=== PATIENT | female | born 1970 | race Caucasian/White ===

== ENCOUNTER 2018-10-20 18:54 | Emergency (ER) | payer MEDICAID, SELFPAY ==
[2018-10-20 18:57] VITALS: BP 135/84; PULSE 112; RESP 18; TEMP 37.2; O2SAT 96
--- NOTE | 2018-10-20 19:05 | W.ED.GENAD ---
Discharge Plan Disposition Patient Disposition: HOME Condition: Stable Discharge Details Chief Complaint: RespSymp Clinical Impression: COPD exacerbation Primary Care Provider: Keyona Lamar ED Provider: Javi Lowery Home Meds and New Rx's Prescriptions: New prednisone 20 mg tablet 60 mg PO DAILY 4 Days Qty: 12 RF: 0 levofloxacin 750 mg tablet 750 mg PO DAILY 4 Days Qty: 4 RF: 0 benzonatate [Tessalon Perles] 100 mg capsule 100 mg PO BID-TID PRN (Reason: cough) Qty: 30 RF: 0 Discharge Instructions Instructions: COPD (Chronic Obstructive Pulmonary Disease) (ED) Additional Instructions: use the inhaler, 2 puffs every 2 hours, with the spacer follow up with your primary care provider especially if symptoms continue within a week if you feel you are becoming more ill or more short of breath return to the emergency department for reevaluation Medical Decision Making 48 yo female with hx of copd, smoker, former opiate user and stopped using months ago and stopped taking her meds at the same time comes in with cough and shortness of breath since Friday. Denies any recent travel or fevers. She is speaking in full sentences on exam with wheezing in all lungs bilaterally. Denies any pleuritic pain, has no evidence of dvt on exam and no significant hypoxia and exam is consistent with copd so doubt pe at this time. No fever and appears well so doubt pna and do not feel imaging indicated. Will give neb and prednisone and reassess. pt remains stable and does feel improved with nebs, has mild apical wheezing now. Feel she is stable for d/c and is hd stable, and will d/c with inhaler, and prescription for steroids and given increased cough abx. Advised f/u with pcp and return precautions given Differential Diagnosis copd, pna, rad HPI General Mode of arrival: ambulatory. Date/Time Provider Initiated Documentation: 10/20/18 19:02. Limitations to Documentation: no limitations. Information obtained by: patient. History of Present Illness 48 year old F presents to the emergency department with the chief complaint of cough, described as moderate, Patient started experiencing this day(s) (3) and it has been constant. No relieving factors improve symptom(s), No exacerbating factors reported . Patient did receive the following treatments prior to arrival, none Related Data Home Medications Medication Instructions Recorded Confirmed benzonatate [Tessalon Perles] 100 mg PO BID-TID PRN #30 cap 10/20/18 levofloxacin 750 mg PO DAILY 4 Days #4 tab 10/20/18 prednisone 60 mg PO DAILY 4 Days #12 tab 10/20/18 Previous Rx's Medication Instructions Recorded benzonatate [Tessalon Perles] 100 mg PO BID-TID PRN #30 cap 10/20/18 levofloxacin 750 mg PO DAILY 4 Days #4 tab 10/20/18 prednisone 60 mg PO DAILY 4 Days #12 tab 10/20/18 Allergies Allergy/AdvReac Type Severity Reaction Status Date / Time No Known Allergies Allergy Unverified 10/20/18 19:03 General Stated Complaint: RespSymp SHARON: 3 Review of Systems Review of Systems All systems reviewed & are unremarkable except as noted in HPI and below Constitutional Denies chills and Denies fever(s) Cardiovascular Denies chest pain Gastrointestinal Denies abdominal pain, Denies nausea and Denies vomiting PFSH Surgical History Cholecystectomy Social History Smoking/Tobacco Use Status: Current every day Tobacco Type: cigarettes Drug use: Never Do you feel safe at home: Yes Do you feel safe in your relationship?: Yes Exam Const General: no acute distress Orientation: alert HENCO Head: normal to inspection Ears: external ears normal General nose exam: external nose normal Mouth: moist mucous membranes Eyes General: appearance normal, both eyes and all related structures Neck Neck: normal visual inspection Resp Effort & Inspection: able to speak in complete sentences and no use of accessory muscles Cardio Rate: regular rate Skin General skin exam: no rashes or lesions noted Neuro General: alert and oriented x3 Extrem General: normal to inspection Psych Mental Status: mental status grossly normal Course Vital Signs Temperature 37.2 C 10/20/18 18:57 Pulse 112 H 10/20/18 18:57 Respiratory Rate 18 10/20/18 18:57 Blood Pressure 135/84 10/20/18 18:57 Pulse Oximetry 96 10/20/18 18:57 Temperature 37.2 C 10/20/18 18:57 Temperature Source Skin 10/20/18 18:57 Pulse 112 H 10/20/18 18:57 Respiratory Rate 18 10/20/18 18:57 Respiratory Effort 10/20/18 19:01 Blood Pressure 135/84 10/20/18 18:57 Pulse Oximetry 96 10/20/18 18:57 Oxygen Delivery Method Room Air 10/20/18 18:57 Oxygen Flow Rate 0 10/20/18 18:57
--- NOTE | 2018-10-20 19:08 | ED.GENADUL_ITS ---
Discharge Plan Disposition Patient Disposition: HOME Condition: Stable Discharge Details Chief Complaint: RespSymp Clinical Impression: COPD exacerbation Primary Care Provider: Keyona Lamar ED Provider: Javi Lowery Home Meds and New Rx's Prescriptions: New prednisone 20 mg tablet 60 mg PO DAILY 4 Days Qty: 12 RF: 0 levofloxacin 750 mg tablet 750 mg PO DAILY 4 Days Qty: 4 RF: 0 benzonatate [Tessalon Perles] 100 mg capsule 100 mg PO BID-TID PRN (Reason: cough) Qty: 30 RF: 0 Discharge Instructions Instructions: COPD (Chronic Obstructive Pulmonary Disease) (ED) Additional Instructions: use the inhaler, 2 puffs every 2 hours, with the spacer follow up with your primary care provider especially if symptoms continue within a week if you feel you are becoming more ill or more short of breath return to the emergency department for reevaluation Medical Decision Making 48 yo female with hx of copd, smoker, former opiate user and stopped using months ago and stopped taking her meds at the same time comes in with cough and shortness of breath since Friday. Denies any recent travel or fevers. She is speaking in full sentences on exam with wheezing in all lungs bilaterally. Denies any pleuritic pain, has no evidence of dvt on exam and no significant hypoxia and exam is consistent with copd so doubt pe at this time. No fever and appears well so doubt pna and do not feel imaging indicated. Will give neb and prednisone and reassess. pt remains stable and does feel improved with nebs, has mild apical wheezing now. Feel she is stable for d/c and is hd stable, and will d/c with inhaler, and prescription for steroids and given increased cough abx. Advised f/u with pcp and return precautions given Differential Diagnosis copd, pna, rad HPI General Mode of arrival: ambulatory . Date/Time Provider Initiated Documentation: 10/20/18 19:02 . Limitations to Documentation: no limitations . Information obtained by: patient . History of Present Illness 48 year old F presents to the emergency department with the chief complaint of cough, described as moderate, Patient started experiencing this day(s) (3) and it has been constant. No relieving factors improve symptom(s), No exacerbating factors reported . Patient did receive the following treatments prior to arrival, none Related Data Home Medications Medication Instructions Recorded Confirmed benzonatate [Tessalon Perles] 100 mg PO BID-TID PRN #30 cap 10/20/18 levofloxacin 750 mg PO DAILY 4 Days #4 tab 10/20/18 prednisone 60 mg PO DAILY 4 Days #12 tab 10/20/18 Previous Rx's Medication Instructions Recorded benzonatate [Tessalon Perles] 100 mg PO BID-TID PRN #30 cap 10/20/18 levofloxacin 750 mg PO DAILY 4 Days #4 tab 10/20/18 prednisone 60 mg PO DAILY 4 Days #12 tab 10/20/18 Allergies Allergy/AdvReac Type Severity Reaction Status Date / Time No Known Allergies Allergy Unverified 10/20/18 19:03 General Stated Complaint: RespSymp SHARON: 3 Review of Systems Review of Systems All systems reviewed & are unremarkable except as noted in HPI and below Constitutional Denies chills and Denies fever(s) Cardiovascular Denies chest pain Gastrointestinal Denies abdominal pain, Denies nausea and Denies vomiting PFSH Surgical History Cholecystectomy Social History Smoking/Tobacco Use Status: Current every day Tobacco Type: cigarettes Drug use: Never Do you feel safe at home: Yes Do you feel safe in your relationship?: Yes Exam Const General: no acute distress Orientation: alert HENPR Head: normal to inspection Ears: external ears normal General nose exam: external nose normal Mouth: moist mucous membranes Eyes General: appearance normal, both eyes and all related structures Neck Neck: normal visual inspection Resp Effort & Inspection: able to speak in complete sentences and no use of accessory muscles Cardio Rate: regular rate Skin General skin exam: no rashes or lesions noted Neuro General: alert and oriented x3 Extrem General: normal to inspection Psych Mental Status: mental status grossly normal Course Vital Signs Temperature 37.2 C 10/20/18 18:57 Pulse 112 H 10/20/18 18:57 Respiratory Rate 18 10/20/18 18:57 Blood Pressure 135/84 10/20/18 18:57 Pulse Oximetry 96 10/20/18 18:57 Temperature 37.2 C 10/20/18 18:57 Temperature Source Skin 10/20/18 18:57 Pulse 112 H 10/20/18 18:57 Respiratory Rate 18 10/20/18 18:57 Respiratory Effort 10/20/18 19:01 Blood Pressure 135/84 10/20/18 18:57 Pulse Oximetry 96 10/20/18 18:57 Oxygen Delivery Method Room Air 10/20/18 18:57 Oxygen Flow Rate 0 10/20/18 18:57
[2018-10-20] MEDS: predniSONE 20 MG TAB (19:09)
[2018-10-20] MEDS: Albuterol/Ipratropium 3 ML UPD VIAL (19:09)
[2018-10-20] MEDS: levoFLOXacin 500 MG, levoFLOXacin 250 MG 750 MG PO (19:31)
[2018-10-20] MEDS: Albuterol 2.5 MG/3 ML INH SOLN VIAL UPD (19:32)
[2018-10-20 20:04] VITALS: BP 140/76; PULSE 130; RESP 22; TEMP 37.8; O2SAT 96
[2018-10-20] MEDS: Inhaler, Assist Device 1 EACH MC (20:10)
[2018-10-20] MEDS: Benzonatate 100 MG CAP (20:10)
[2018-10-20] MEDS: Albuterol HFA 8 GM 60 PUFF INH IH (20:10)
== END 2018-10-20 20:15 | disposition home or self-care (01) ==
PROVIDERS: Emergency Provider Emergency Medicine; PCP Nurse Practitioner Family
DX: J44.1 Chronic obstructive pulmonary disease with (acute) exacerbation (principal); F17.210 Nicotine dependence, cigarettes, uncomplicated
CPT/HCPCS: 94640; 99284; J7512; J7613; J7620

== ENCOUNTER 2021-10-12 13:19 | Emergency (ER) | payer MEDICAID, SELFPAY ==
[2021-10-12 13:24] VITALS: BP 133/83; PULSE 100; RESP 16; TEMP 36.6; O2SAT 96
--- NOTE | 2021-10-12 13:30 | DI.RAD_ITS ---
Exam(s) XR FOREARM RT XR HUMERUS RT XR WRIST RT COMPLETE EXAM: XR HUMERUS RT and XR forearm RT and XR wrist RT complete CLINICAL HISTORY: fall, arm pain. TECHNIQUE: 2D digital imaging was performed of the right humerus. Seven images were obtained. AP, lateral and oblique views were obtained. COMPARISON: No priors for comparison. FINDINGS: BONES: On the x-ray of the forearm, there is a vertical lucency passing through the radial head suspi cious for nondisplaced fracture. No bony destructive lesion is seen. No other fracture is identified . No dislocation is seen. SOFT TISSUE: Normal. IMPRESSION: Question of a nondisplaced fracture involving the radial head. DATA REPOSITORY: RADIATION DOSE DELIVERED:
[2021-10-12] MEDS: Acetaminophen 325 MG TAB 650 MG PO (13:43)
[2021-10-12] MEDS: Ibuprofen 600 MG TAB PO (13:43)
--- NOTE | 2021-10-12 13:45 | ED.GENADUL_ITS ---
Discharge Plan Disposition Patient Disposition: HOME Condition: Improving Discharge Details Chief Complaint: Orthopedic Clinical Impression: Radial head fracture Primary Care Provider: Keyona Lamar ED Provider: Alexey Antoine Discharge Instructions Instructions: Arm Fracture in Adults (ED), Elbow Fracture (ED) Additional Instructions: Please follow-up with client engagement specialist next week for repeat evaluation. Begin light range of motion after 3 to 4 days and the sling, continue with ibuprofen acetaminophen ice elevation. Return the emergency department for any worsening symptomatology. Medical Decision Making 51-year-old female presents with mechanical fall from standing slip on ice, fell onto her right side, decreased range of motion to shoulder and elbow of right upper extremity, median radial ulnar distribution sensory intact, flexion extension of fingers intact, soft compartments radial pulse intact, no palpable deformity however given decreased range of motion high, suspicion for fracture consider humeral fracture versus radial ulnar fracture, patient did have some tenderness at wrist consider scaphoid injury versus carpal dislocation versus contusion versus sprain. Analgesia anti-inflammatory, x-ray, patient does not want stronger opioid medications as she does have a history of substance abuse. 15: 05 clinical and radiographical concern for radial head fracture. Patient placed in sling immobilization. Did have some ulnar wrist discomfort placed in universal wrist splint. Patient be given orthopedic follow-up. Encourage ice elevation ibuprofen Tylenol use. Home care instructions and return precautions given HPI General Date/Time Provider Initiated Documentation: 10/12/21 13:19 . HPI Narrative: 51-year-old female presented mechanical fall from standing on her right side, fell onto her right arm, no head injury no loss conscious no chest or abdominal injury. Endorses pain to right forearm and right upper arm. Related Data Allergies Allergy/AdvReac Type Severity Reaction Status Date / Time No Known Allergies Allergy Unverified 10/12/21 13:28 General Stated Complaint: Orthopedic SHARON: 4 Review of Systems Narrative: Review of Systems Constitutional: negative Eyes: negative ENT: negative Cardiovascular: negative Respiratory: negative Gastrointestinal: negative : negative Musculoskeletal: Arm pain Skin: negative Neurologic: negative Psych: negative PFSH All Active Problems (Updated 10/12/21 @ 15:08 by Alexey Antoine MD) Radial head fracture (Acute) Surgical History Cholecystectomy Social History Smoking/Tobacco Use Status: Current every day Tobacco Type: cigarettes Smoking risk assessment performed?: Yes Drug use: Never Do you feel safe at home: Yes Do you feel safe in your relationship?: Yes Exam Narrative Exam Narrative: Physical Examination General: alert, awake, cooperative, resting comfortably, no acute distress HEENT: normocephalic, atraumatic; PERRL, EOM intact, conjunctiva normal; no nasal discharge; moist mucous membranes, oral and pharyngeal mucosa normal, tolerating secretions Neck: supple, trachea midline; full ROM Chest: normal to inspection Respiratory: normal respiratory effort, speaking in full sentences, clear to auscultation, no wheezing, rales or rhonchi Cardiac: regular rate, regular rhythm, S1S2 intact, no murmurs rubs or gallops GI: abdomen soft, non-tender, non-distended; no palpable mass or hepatosplenomegaly Skin: no lesions, rashes or trauma appreciated Neuro: AAOx3, normal speech, moving all extremities Extremities: Right upper extremity decreased range of motion at shoulder and elbow due to discomfort, able to flex and extend fingers, median radial and ulnar nerve distribution intact, radial pulse intact, no palpable deformity, soft compartments Psych: Appropriate mood and affect Course Vital Signs Vital signs: Vital Signs Temperature 36.6 C 10/12/21 13:24 Pulse 100 H 10/12/21 13:24 Respiratory Rate 16 10/12/21 13:24 Blood Pressure 133/83 10/12/21 13:24 Pulse Oximetry 96 10/12/21 13:24 Temperature 36.6 C 10/12/21 13:24 Temperature Source Oral 10/12/21 13:24 Pulse 100 H 10/12/21 13:24 Respiratory Rate 16 10/12/21 13:24 Respiratory Effort 10/12/21 13:32 Blood Pressure 133/83 10/12/21 13:24 Blood Pressure Position Sitting 10/12/21 13:24 Pulse Oximetry 96 10/12/21 13:24 Oxygen Delivery Method Room Air 10/12/21 13:24 Oxygen Flow Rate 0 10/12/21 13:24 Pain Level 7 10/12/21 13:24 Comment 10/12/21 13:24
== END 2021-10-12 15:47 | disposition home or self-care (01) ==
PROVIDERS: Emergency Provider Emergency Medicine; PCP Nurse Practitioner Family
DX: S52.124A Nondisplaced fracture of head of right radius, initial encounter for closed fracture (principal); W00.0XXA Fall on same level due to ice and snow, initial encounter
CPT/HCPCS: 81025; 99284; 73060; 73090; 73110

== ENCOUNTER 2021-10-30 10:40 | Outpatient (CLI) | payer MEDICAID, SELFPAY ==
--- NOTE | 2021-10-30 08:00 | DI.RAD_ITS ---
Exam(s) XR ELBOW RT LIMITED EXAM: XR ELBOW RT LIMITED CLINICAL HISTORY: right radial head fracture. TECHNIQUE: 2D digital imaging was performed. COMPARISON: CR XR FOREARM RT from 10/12/2021 FINDINGS: 3 views There is no evidence of acute fracture nor joint effusion and there is no swelling of the olecranon b ursa. Radial head appears unremarkable. No loose intra-articular body. Additional Coy's radial head view was performed today and does not reveal evidence of a radial head -neck fracture. IMPRESSION: No fracture evident. DATA REPOSITORY: RADIATION DOSE DELIVERED:
--- NOTE | 2021-10-30 08:15 | DI.RAD_ITS ---
Exam(s) XR SHOULDER RT COMPLETE 2+V EXAM: XR SHOULDER RT COMPLETE 2+V CLINICAL HISTORY: right arm injury. TECHNIQUE: 2D digital imaging was performed. COMPARISON: No exams were available for comparison FINDINGS: Two views No evidence of fracture or dislocation nor calcifications within the subacromial space (which does no t appear diminished). No obvious degenerative changes in the glenohumeral and AC joints. However, t here is a small 1 millimeter osteophytic density immediately subjacent to the inferior aspect of the osseous glenoid. This may be related to the labrum or possibly a mild Bankart-type finding if there has been prior dislocation. Other possibility is a small loose body at this level. IMPRESSION: DATA REPOSITORY: RADIATION DOSE DELIVERED:
== END 2021-10-30 10:41 | disposition home or self-care (01) ==
LOC: DIORS 10:41
PROVIDERS: PCP Nurse Practitioner Family; Referring Provider Nurse Practitioner Family; Visit Provider Physician Assistant
DX: S49.81XA Other specified injuries of right shoulder and upper arm, initial encounter; M25.711 Osteophyte, right shoulder; S52.124A Nondisplaced fracture of head of right radius, initial encounter for closed fracture; W00.0XXA Fall on same level due to ice and snow, initial encounter
CPT/HCPCS: 73030; 73070

== ENCOUNTER 2022-02-26 16:57 | Outpatient (CLI) | payer MEDICAID, SELFPAY ==
--- NOTE | 2022-02-26 16:45 | RT.EKG_ITS ---
APPROVED REPORT Exam: Resting ECG Reason for Exam: chest discomfort Patient Location: O HR:109 bpm ECG Measurements Heart Rate 109 AXIS PA 123 P 60 QRSd 104 QRS 40 QT 340 T 41 QTc 458 Conclusion Sinus tachycardia...rate> 99
== END 2022-02-26 16:58 | disposition home or self-care (01) ==
LOC: DI.CM 16:57
PROVIDERS: PCP Nurse Practitioner Family; Visit Provider Nurse Practitioner Family
DX: R07.89 Other chest pain (principal); R94.31 Abnormal electrocardiogram [ECG] [EKG]; R00.0 Tachycardia, unspecified
CPT/HCPCS: 93010

== ENCOUNTER 2022-02-26 17:16 | Outpatient (REF) | payer MEDICAID, SELFPAY ==
[2022-02-26 21:05] LABS: Anion Gap 10.1 mmol/L (3-11); BUN 10 mg/dL (7-18); CO2 27.9 mmol/L (21.0-32.0); CREATININE 1.1 mg/dL (0.55-1.02); Calcium 8.9 mg/dL (8.5-10.1); Chloride 102 mmol/L (98-107); Estimated GFR 52.79 (mL/min/1.73m2); Glucose 85 mg/dL (74-106); Potassium 4.5 mmol/L (3.5-5.1); Sodium 140 mmol/L (136-145)
== END 2022-02-26 17:17 | disposition home or self-care (01) ==
LOC: LBN 17:16
PROVIDERS: PCP Nurse Practitioner Family; Visit Provider Nurse Practitioner Family
DX: U07.1 COVID-19 (principal)
CPT/HCPCS: 80048

== ENCOUNTER 2022-03-11 17:21 | Outpatient (REF) | payer MEDICAID, SELFPAY ==
[2022-03-11 16:28] LABS: Abs Immature Grans 0.09 10^3/uL (0.0-0.06); Absolute Basophil Count 0.06 10^3/uL (0.0-0.2); Absolute Eosinophil Count 0.11 10^3/uL (0.0-0.7); Absolute Lymphocyte Count 3.04 10^3/uL (1.2-3.4); Absolute Monocyte Count 0.84 10^3/uL (0.1-0.8); Absolute Neutrophil Count 6.25 10^3/uL (1.2-6.7); Basophils % 0.6; Eosinophils % 1.1; HGB 15.6 g/dL (11.2-15.7); Immature Grans % 0.9; Lymphocytes % 29.3; MCH 29.7 pg (27.0-33.0); MCHC 33.2 % (32.0-36.0); MCV 90 fL (80-95); MPV 10.5 fL (8.0-11.0); Monocytes % 8.1; Platelet Count 418 10^3/uL (130-400); RBC 5.25 10^6/uL (3.93-5.22); RDW 13.1 % (11.7-14.6); RDW-SD 42.9 fL; WBC 10.39 10^3/uL (4.4-10.8)
[2022-03-11 16:53] LABS: FREE T4 1.12 ng/dL (0.76-1.46); TSH 1.43 uIU/mL (0.36-3.74)
[2022-03-12 18:09] LABS: T3, Total 137 ng/dL (97-169)
== END 2022-03-11 17:22 | disposition home or self-care (01) ==
LOC: NCHCN 17:21
PROVIDERS: PCP Nurse Practitioner Family; Visit Provider Nurse Practitioner Family
DX: E05.90 Thyrotoxicosis, unspecified without thyrotoxic crisis or storm (principal); R00.0 Tachycardia, unspecified
CPT/HCPCS: 84439; 84443; 84480; 85025

== ENCOUNTER 2022-03-25 17:11 | Outpatient (REF) | payer MEDICAID, SELFPAY ==
--- NOTE | 2022-03-25 10:35 | PAPFT_PTH ---
PATIENT: Patricia Quiroz LOC: [facility] U#:[id number] AGE/SX: 51/F ROOM: RE03/25/[address]: RICA RAMSAY : 1970 BED: DIS: 03/25/2022 SPEC #: [id number] RECD: 03/25/22 17:51 STATUS: EVETTE REQ #: [id number] MALCOLM: 03/25/22 10:[address]: Rica Ramsay DEPT: [facility] Cytology RECD BY: Alma Rosa Montague ENTERED: 03/25/22 17:51 SP TYPE: PAPFT OTHR DR: Unknown,Unknown Tissues: 1 - CX/ENDOCX FOR PAP SMEARS Procedures: PAP THIN PREP/[facility] Screening HPV DNA PROBE Comments: [id number] (CHLAMYDIA/GC)
[2022-03-25 21:03] LABS: ALT 35 U/L (14-59); AST 24 U/L (15-37); Albumin 3.8 g/dL (3.4-5.0); Alkaline Phosphatase 80 U/L (46-116); Anion Gap 8.5 mmol/L (3-11); BUN 12 mg/dL (7-18); Bilirubin, Total 0.2 mg/dL (0.2-1.0); CO2 28.5 mmol/L (21.0-32.0); CREATININE 1.1 mg/dL (0.55-1.02); Calcium 9.2 mg/dL (8.5-10.1); Chloride 100 mmol/L (98-107); Glucose 91 mg/dL (74-106); Potassium 4.3 mmol/L (3.5-5.1); Sodium 137 mmol/L (136-145); Total Protein 8.6 g/dL (6.4-8.2)
[2022-03-25 21:21] LABS: Calculated LDL 163 mg/dL (<100); Cholesterol 227 mg/dL (<200); HDL Cholesterol 49 mg/dL (40-60); Triglyceride 78 mg/dL (<150)
[2022-03-26 13:46] LABS: Chlamydia Result Negative (Negative); GC Result Negative (Negative)
== END 2022-03-25 17:12 | disposition home or self-care (01) ==
LOC: NCHCN 17:11
PROVIDERS: Visit Provider Nurse Practitioner Family
DX: R00.0 Tachycardia, unspecified (principal); Z13.220 Encounter for screening for lipoid disorders; Z12.4 Encounter for screening for malignant neoplasm of cervix; Z11.3 Encounter for screening for infections with a predominantly sexual mode of transmission; Z11.51 Encounter for screening for human papillomavirus (HPV)
CPT/HCPCS: 80053; 80061; 87491; 87591; 88142; 87624

== ENCOUNTER → 2022-04-09 01:55 | Outpatient (CLI) | payer MEDICAID, SELFPAY ==
--- NOTE | 2022-04-09 | DI.MAMMO_ITS ---
Exam(s) MAMMO SCREENING EXAM: MAMMO SCREENING CLINICAL HISTORY: SCREENING, Z12.39 TECHNIQUE: Bilateral full field digital CC and MLO mammographic images were obtained with 3D tomosyn thesis and utilizing computer aided detection (CAD). COMPARISON: Available for comparison. FINDINGS: Masses/Architectural Distortion: None seen. There is a stable nodule in the medial left breast on the CC view. Microcalcifications: No suspicious pleomorphic-type are seen. Skin Thickening/Nipple Retraction: None. IMPRESSION: 1. No significant interval change with no specific features of malignancy noted. 2. Unless there is more urgent need, screening mammography is recommended, as per [employer] [place] [employer] guidelines. BI-RADS Category 1 - Negative Breast Density - Category B - Scattered areas of fibroglandular density Breast density category C or D implies that the patient has dense breast tissue. Dense breast tissue is very common and is not abnormal but dense breast tissue can make it harder to find cancer on a ma mmogram. Also, dense breast tissue may increase their breast cancer risk. This information about the result of the mammogram report was provided to the patient to raise their awareness. Use this report when you speak with the patient about their risks for breast cancer, which includes their family hist ory. At that time, you may recommend for more screening tests (Ultrasound or MRI) as they might be us eful based on their risk. A negative radiographic report should not delay biopsy if a dominant or clinically suspicious mass is present. Up to ten percent of cancers are not identified on mammography. A negative report may reinforce clinical impression. Adenosis and dense breasts may obscure an underlying neoplasm. False positive reports average 6 to 10%. Patient will receive a letter notifying them of these results.
== END ==
PROVIDERS: Visit Provider Nurse Practitioner Family
DX: Z12.31 Encounter for screening mammogram for malignant neoplasm of breast (principal)
CPT/HCPCS: 77063; 77067

== ENCOUNTER 2022-05-31 15:48 | Emergency (ER) | payer MEDICAID, SELFPAY ==
[2022-05-31 15:53] VITALS: BP 166/79; PULSE 92; RESP 18; TEMP 37.1; O2SAT 98
--- NOTE | 2022-05-31 16:25 | ED.GENADUL_ITS ---
Discharge Plan Disposition Patient Disposition: Home Condition: Good Discharge Details Clinical Impression: Cough, Asthma exacerbation Primary Care Provider: Wyatt Bauer RN ED Provider: Kadi Thomas Home Meds and New Rx's Prescriptions: New benzonatate 100 mg capsule 100 mg PO TID PRN (Reason: cough) Qty: 14 0RF doxycycline hyclate 100 mg tablet 100 mg PO BID Qty: 10 0RF Continued albuterol sulfate 90 mcg/actuation HFA aerosol inhaler 2 puff inhalation Q6H PRN (Reason: shortness of breath or wheezing) Qty: 8.5 0RF Rx Instructions: 2 puffs every 4-6 hours as needed for cough, wheeze, or shortness of breath Paxlovid (EUA) 150-100 mg tablet See Rx Instructions PO PER PKG DIR Qty: 20 0RF Rx Instructions: PO PER PKG DIR ibuprofen 200 mg tablet 800 mg PO DAILY PRN Mirena 20 mcg/24 hours (8 yrs) 52 mg intrauterine device 1 device intrauterine ONCE Rx Instructions: as a single dose varenicline [[employer] Starting Month Box] 0.5 mg (11)- 1 mg (42) tablets,dose pack See Rx Instructions PO PER PKG DIR Rx Instructions: PO PER PKG DIR Discharge Instructions Instructions: Asthma (ED), Acute Cough (ED) Additional Instructions: Your history and exam is concerning for asthma exacerbation. Given the length of your symptoms, I do feel it would be appropriate to cover you for possible pneumonia as well. Please encourage hydration. You may use Tylenol and ibuprofen as needed for discomfort. You may use the Tessalon Perles as prescribed to help with cough. Please take the antibiotics and steroids as prescribed to help with the asthma exacerbation infection. Please continue with your albuterol inhaler as previously prescribed. Please follow-up with primary care in 1 to 2 weeks for reevaluation. Good job cutting back on smoking, please consider cessation. If you develop chest pain, shortness of breath, inability to stay hydrated or other new/worsening symptoms please seek care urgently once again. Referrals: Wyatt Bauer RN [Primary Care Provider] - Discharge Data Discharge Date/Time-TO BE ENTERED AT DEPARTURE: 05/31/22 16:59 Medical Decision Making Patient is a pleasant 52-year-old female presenting today, accompanied by her daughter, with chief complaint of cough, congestion and increased asthma symptoms for the past 3.5 weeks. States that her fever has been improving. She is not short of breath when at rest but the cough itself can take her breath away some. She is an active smoker but is trying to cut back. No recent travel or time being sedentary. No history of PE. She reports that she did recently get a new job and has been more active and not smoking as much during the day. Patient was treated for COVID in February. No known COVID contacts recently. Patient states that symptoms initially improved but worsened. On exam, paatient appears nontoxic. She is not currently wheezy, lungs are clear. Vital signs are stable. Wells negative. No unilateral leg swelling. ENt signficant for slight erythema in posterior oropharynx. Her description of the symptoms are consistent with infectious etiology. She is Wells negative, hx and exam more consistent with infectious etiology. With the improvmeent then worsneing symptoms, I am concerend about possible pneumonia. She also has is describing increased wheezing and increased asthma symptoms, will also treat for possible asthma exacerbation. Encouraged supportive care. Encouraged smoking cessation. Sh is out of wind ofr any treatment for viral etiology, reeturn more likely bacterial Return precautions discussed. Advused close f/u with PCP. All questions and concerns addressed, she is in agreement with this plan. Sign Out No HPI General Date/Time Provider Initiated Documentation: 05/31/22 16:25 . Limitations to Documentation: no limitations . Information obtained by: patient, family and RN notes reviewed . History of Present Illness 52 year old F presents to the emergency department with the chief complaint of cough, wheezing, sore throat, congestion, described as moderate, with intensity rated at 1 (not actively endorsing pain). Patient started experiencing this week(s) (had initially improved some, came back) and it has been intermittent. No relieving factors improve symptom(s), No exacerbating factors reported . Patient notes cough, malaise and shortness of breath (feels tight, hx of asthma); denies chest pain, fever/chills (not currentky), loss of appetite, nausea/vomiting, syncope and weakness. Related Data Home Medications Medication Instructions Recorded Confirmed albuterol sulfate 90 mcg/actuation 2 puff inhalation Q6H PRN 02/26/22 05/31/22 aerosol inhaler shortness of breath or wheezing #8.5 grams nirmatrelvir 150 mg-ritonavir 100 See Rx Instructions PO PER PKG DIR 02/27/22 02/27/22 mg tablets in a dose pack (EUA) #20 tabs (Paxlovid) ibuprofen 200 mg tablet 800 mg PO DAILY PRN 05/27/22 05/31/22 levonorgestrel 20 mcg/24 hours (8 1 device intrauterine ONCE 05/27/22 yrs) 52 mg intrauterine device (Mirena) varenicline 0.5 mg (11)-1 mg (42) See Rx Instructions PO PER PKG DIR 05/27/22 05/31/22 tablets in a dose pack ([employer] Starting Month Box) benzonatate 100 mg capsule 100 mg PO TID PRN cough #14 caps 05/31/22 doxycycline hyclate 100 mg tablet 100 mg PO BID #10 tabs 05/31/22 Previous Rx's Medication Instructions Recorded albuterol sulfate 90 mcg/actuation 2 puff inhalation Q6H PRN 02/26/22 aerosol inhaler shortness of breath or wheezing #8.5 grams nirmatrelvir 150 mg-ritonavir 100 See Rx Instructions PO PER PKG DIR 02/27/22 mg tablets in a dose pack (EUA) #20 tabs (Paxlovid) benzonatate 100 mg capsule 100 mg PO TID PRN cough #14 caps 05/31/22 doxycycline hyclate 100 mg tablet 100 mg PO BID #10 tabs 05/31/22 Allergies Allergy/AdvReac Type Severity Reaction Status Date / Time No Known Allergies Allergy Unverified 05/31/22 15:56 General Stated Complaint: GenMedical SHARON: 4 Review of Systems Constitutional Constitutional: Reports as per HPI and Denies headache(s) Eyes Eyes: Reports as per HPI, Denies eye discharge and Denies irritation ENT Ears, Nose, Mouth, and Throat: Reports as per HPI and Denies headache(s) Cardiovascular Cardiovascular: Reports as per HPI and Denies chest pain Respiratory Respiratory: Reports as per HPI Gastrointestinal Gastrointestinal: Reports as per HPI, Denies abdominal pain, Denies change in bowel habits, Denies nausea and Denies vomiting Integumentary/Breasts Skin/Breast: Reports as per HPI and Denies rash Neurologic Neurologic: Reports as per HPI and Denies headache(s) PFSH All Active Problems (Updated 05/31/22 @ 16:46 by DASH Moe) Cough (Acute) Asthma exacerbation (Acute) Screening for colon cancer (Acute) No-show for appointment (Acute) Contusion of right elbow (Acute) Biceps tendinitis of right upper extremity (Acute) Right rotator cuff tendonitis (Acute) Surgical History Cholecystectomy Social History Smoking/Tobacco Use Status: Current every day Tobacco Type: cigarettes Smoking risk assessment performed?: Yes Alcohol Intake: never Drug use: Never Substance use type: does not use Current gender identity: female Do you feel safe at home: Yes Do you feel safe in your relationship?: Yes Exam Const General: cooperative, healthy appearing, comfortable, no acute distress, well developed and well groomed Nutritional Appearance: well nourished and overweight Orientation: alert and awake HENKS Head: normal to inspection, normocephalic and atraumatic Ears: hearing grossly normal bilaterally, external ears normal and TM's normal bilaterally General nose exam: external nose normal and nares normal Face and sinus: normal facial exam, sinuses nontender and face symmetric Mouth: oral mucosae normal, lip normal, tongue normal, oropharynx normal and moist mucous membranes Teeth and gingiva: dentition normal Throat: posterior oropharynx abnormal (mild erythema), tonsils normal and uvula midline Eyes General: appearance normal, both eyes and all related structures Neck Neck: normal visual inspection, full ROM, no lymphadenopathy and no meningeal signs Resp Effort & Inspection: normal respiratory effort, able to speak in complete sentences and no respiratory distress Auscultation: clear to auscultation bilaterally, no rales, no rhonchi and no wheezes Cardio Rate: regular rate Rhythm: regular rhythm Heart Sounds: S1 normal and S2 normal Skin General skin exam: no rashes or lesions noted Neuro General: patient alert and patient awake Cognition: normal cognition Speech: speech normal Gait: normal gait Extrem General: no pedal edema and no calf tenderness Psych Appearance: grossly normal and well kempt Mental Status: mental status grossly normal Speech and Movement: speech and movement normal Course Vital Signs Vital signs: Vital Signs Temperature 37.1 C 05/31/22 15:53 Pulse 92 H 05/31/22 15:53 Respiratory Rate 18 11/18/22 15:53 Blood Pressure 166/79 H 05/31/22 15:53 Pulse Oximetry 98 05/31/22 15:53 Temperature 37.1 C 05/31/22 15:53 Temperature Source Temporal Artery Scan 05/31/22 15:53 Pulse 92 H 05/31/22 15:53 Respiratory Rate 18 05/31/22 15:53 Respiratory Effort Non-Labored 05/31/22 15:57 Blood Pressure 166/79 H 05/31/22 15:53 Blood Pressure Position Sitting 05/31/22 15:53 Pulse Oximetry 98 05/31/22 15:53 Oxygen Delivery Method Room Air 05/31/22 15:53 Oxygen Flow Rate 0 05/31/22 15:53
[2022-05-31 16:53] VITALS: RESP 18
[2022-05-31] MEDS: Lidocaine 5% Patch 1 PATCH (16:58)
== END 2022-05-31 16:59 | disposition home or self-care (01) ==
PROVIDERS: Emergency Provider Physician Assistant; PCP Nurse Practitioner Family
DX: R05.1 Acute cough (principal); J45.901 Unspecified asthma with (acute) exacerbation; F17.210 Nicotine dependence, cigarettes, uncomplicated
CPT/HCPCS: 99283

== ENCOUNTER 2023-09-28 19:18 | Emergency (ER) | payer MEDICAID, SELFPAY ==
[2023-09-28] VITALS (15 sets, daily range): BP systolic 129–165; BP diastolic 87–96; PULSE 95–119; RESP 18; TEMP 37; O2SAT 96–99
--- NOTE | 2023-09-28 19:45 | DI.RAD_ITS ---
Exam(s) XR CHEST 2V PA LATERAL EXAM: XR CHEST 2V PA LATERAL CLINICAL HISTORY: cough, shortness of breath. TECHNIQUE: 2D digital imaging was performed. COMPARISON: No exams were available for comparison FINDINGS: 2 views: Heart size is normal. The mediastinum is not widened. Lungs are clear. No infiltrates nor pleural effusions. IMPRESSION: No acute pulmonary findings. DATA REPOSITORY: RADIATION DOSE DELIVERED:
[2023-09-28 20:09] LABS: COVID-19 PCR Negative (Negative); Influenza A PCR Negative (Negative); Influenza B PCR Negative (Negative); RSV PCR Negative (Negative)
[2023-09-28] MEDS: Dexamethasone 4 MG TAB PO (20:15)
[2023-09-28] MEDS: Normal Saline 1,000 ML 1000 ML IV (20:16)
[2023-09-28 20:22] LABS: Abs Immature Grans 0.05 10^3/uL (0.0-0.06); Absolute Basophil Count 0.06 10^3/uL (0.0-0.2); Absolute Lymphocyte Count 3.01 10^3/uL (1.2-3.4); Absolute Monocyte Count 0.98 10^3/uL (0.1-0.8); Absolute Neutrophil Count 5.16 10^3/uL (1.2-6.7); Basophils % 0.6; Eosinophils % 4.1; HCT 47.7 % (36.0-46.0); HGB 15.6 g/dL (11.2-15.7); Immature Grans % 0.5; Lymphocytes % 31.2; MCH 30.1 pg (27.0-33.0); MCHC 32.7 % (32.0-36.0); MCV 92 fL (80-95); MPV 9.5 fL (8.0-11.0); Monocytes % 10.1; Neutrophils % 53.5; Platelet Count 347 10^3/uL (130-400); RBC 5.18 10^6/uL (3.93-5.22); RDW 13.3 % (11.7-14.6); RDW-SD 45.3 fL; WBC 9.66 10^3/uL (4.4-10.8)
[2023-09-28 20:22] LABS: Source Nasopharynx
[2023-09-28 20:32] LABS: ALT 40 U/L (14-59); AST 21 U/L (15-37); Albumin 3.6 g/dL (3.4-5.0); Alkaline Phosphatase 88 U/L (46-116); Anion Gap 10.1 mmol/L (3-11); BUN 8 mg/dL (7-18); Bilirubin, Total 0.2 mg/dL (0.2-1.0); CO2 26.9 mmol/L (21.0-32.0); Calcium 8.9 mg/dL (8.5-10.1); Chloride 104 mmol/L (98-107); Estimated GFR 68.21 (mL/min/1.73m2); Glucose 110 mg/dL (74-106); Potassium 3.9 mmol/L (3.5-5.1); Sodium 141 mmol/L (136-145); Total Protein 8.2 g/dL (6.4-8.2)
--- NOTE | 2023-09-28 20:40 | ED.GENADUL_ITS ---
Discharge Plan Disposition Patient Disposition: Home Condition: Good Discharge Details Clinical Impression: Viral upper respiratory infection, Acute sore throat Primary Care Provider: Ember Magana RN,Wyatt ED Provider: Елена Bone Home Meds and New Rx's Prescriptions: Continued albuterol sulfate 90 mcg/actuation HFA aerosol inhaler 2 puff inhalation Q6H PRN (Reason: shortness of breath or wheezing) Qty: 8.5 0RF Patient Comments: pt is out and needs a refill Rx Instructions: 2 puffs every 4-6 hours as needed for cough, wheeze, or shortness of breath Discharge Instructions Instructions: Pharyngitis (ED), Upper Respiratory Infection (ED) Additional Instructions: Tylenol and ibuprofen over the counter for pain; follow the directions on the bottle. Return to the emergency department for new or worsening symptoms including fever, inability to swallow fluids, difficulty breathing, or if you have any other concerns. Stand Alone Forms: Work Release Discharge Data Discharge Date/Time-TO BE ENTERED AT DEPARTURE: 09/28/23 22:01 HPI General Mode of arrival: ambulatory . Date/Time Provider Initiated Documentation: 09/28/23 19:22 . Limitations to Documentation: no limitations . Information obtained by: patient . HPI Narrative: 53 yo F presenting with 2 weeks of worsening shortness of breath, cough, and sore throat. Also reports right sided chest wall pain from cough. Pain is dull, present with coughing and palpation, not worse with breathing. Shortness of breath is constant, worse with coughing, no worse with exertion Has been taking dayquill/nyquil with some improvement in symptoms, none today. No fevers, chills, rash, LE edema, lightheadedness, syncope, difficulty swallowing, or other concerns. Related Data Home Medications Medication Instructions Recorded Confirmed albuterol sulfate 90 mcg/actuation 2 puff inhalation Q6H PRN 02/26/22 09/28/23 aerosol inhaler shortness of breath or wheezing #8.5 grams Previous Rx's Medication Instructions Recorded albuterol sulfate 90 mcg/actuation 2 puff inhalation Q6H PRN 02/26/22 aerosol inhaler shortness of breath or wheezing #8.5 grams Allergies Allergy/AdvReac Type Severity Reaction Status Date / Time No Known Allergies Allergy Unverified 09/28/23 19:23 General Stated Complaint: RespSymp SHARON: 3 Exam Narrative Exam Narrative: General: Alert, well appearing, well nourished, in no acute distress. Head: Normocephalic, atraumatic Neck: Trachea midline, ?Neck supple. ENT: ?MMM.? Bilateral tonsillar erythema. Uvula midline. Chest: Right ribs TTP Cardiac: ?Tachycardiac, regular, no murmurs appreciated Resp: No respiratory distress. CTAB. Abd: ?Soft, non-distended, nontender Extremities: ?No deformities.? No peripheral edema. Neurologic: GCS 15. ? Moves all extremities freely against gravity Course Vital Signs Vital signs: Vital Signs Temperature 37.0 C 09/28/23 19:19 Pulse 119 H 09/28/23 19:19 Respiratory Rate 18 09/28/23 19:19 Pulse Oximetry 98 09/28/23 19:19 Temperature 37.0 C 09/28/23 19:19 Temperature Source Oral 09/28/23 19:19 Pulse 119 H 09/28/23 19:19 Respiratory Rate 18 09/28/23 19:19 Respiratory Effort Normal 09/28/23 19:30 Blood Pressure 165/96 H 09/28/23 19:41 Blood Pressure Position Sitting 09/28/23 19:19 Pulse Oximetry 98 09/28/23 19:19 Oxygen Delivery Method Room Air 09/28/23 19:19 Oxygen Flow Rate 0 09/28/23 19:19 Pain Level 7 09/28/23 19:19 Lab/Test Results Lab/Test Results: Laboratory Tests Range/Units 09/28/23 09/28/23 19:26 20:11 WBC (4.4-10.8) 10^3/uL 9.66 RBC (3.93-5.22) 10^6/uL 5.18 Hgb (11.2-15.7) g/dL 15.6 Hct (36.0-46.0) % 47.7 H MCV (80-95) fL 92 MCH (27.0-33.0) pg 30.1 MCHC (32.0-36.0) % 32.7 RDW (11.7-14.6) % 13.3 Plt Count (130-400) 10^3/uL 347 MPV (8.0-11.0) fL 9.5 Immature Gran % 0.5 Neutrophils % 53.5 Lymphocytes % 31.2 Monocytes % 10.1 Eosinophils % 4.1 Basophils % 0.6 Nucleated RBC % (0.0-0.3) % 0.0 Absolute Neutrophils (1.2-6.7) 10^3/uL 5.16 Absolute Lymphocytes (1.2-3.4) 10^3/uL 3.01 Absolute Monocytes (0.1-0.8) 10^3/uL 0.98 H Absolute Eosinophils (0.0-0.7) 10^3/uL 0.40 Absolute Basophils (0.0-0.2) 10^3/uL 0.06 VBG Lactate (0.6-1.4) mmol/L 1.0 Sodium (136-145) mmol/L 141 Potassium (3.5-5.1) mmol/L 3.9 Chloride (98-107) mmol/L 104 Carbon Dioxide (21.0-32.0) mmol/L 26.9 Anion Gap (3-11) mmol/L 10.1 BUN (7-18) mg/dL 8 Creatinine (0.55-1.02) mg/dL 1.0 Est GFR (CKD-EPI 2020) (mL/min/1.73m2) 68.21 Glucose (74-106) mg/dL 110 H Calcium (8.5-10.1) mg/dL 8.9 Total Bilirubin (0.2-1.0) mg/dL 0.2 AST (15-37) U/L 21 ALT (14-59) U/L 40 Alkaline Phosphatase (46-116) U/L 88 Total Protein (6.4-8.2) g/dL 8.2 Albumin (3.4-5.0) g/dL 3.6 COVID-19 Source Nasopharynx SARS-CoV-2 (PCR) (Negative) Negative Influenza Type A (PCR) (Negative) Negative Influenza Type B (PCR) (Negative) Negative RSV (PCR) (Negative) Negative Medical Decision Making 53 yo F presenting with 2 weeks of worsening shortness of breath, cough, and sore throat. Also reports right sided chest wall pain from cough. Pain is dull, present with coughing and palpation, not worse with breathing. Shortness of breath is constant, worse with coughing, no worse with exertion Tachycardiac on arrival to 110's; persistently tachycardia on my exam to 110's at rest. Vital signs otherwise reassuring, afebrile, non-toxic appearing. Not overtly septic; would not treat presumptively based on heart rate alone. No respiratory distress, no increased work of breathing, clear lungs on exam. Reproducible right rib tenderness to palpation not concerning for acute coronary syndrome. Bilateral tonsillar erythema on exam, slightly dry mucus membranes. Patient reports diminished PO intake 2/t sore throat; suspect volume status the most likely etiology of her tachcyardia given her otherwise well appearance and likely viral URI however will evaluate further with labs/CXR. Will give 1l IVFB, PO decadron for symptoms. Lower suspicion for pulmonary embolism however with tachycardia and shortness of breath possible so will get dimer. XR independently reviewed, no focal pneumonia or pneumothorax on my view, agree with radiology read below with no acute findings. Respiratory viral swab negative for covid, flu, RSV. Labs reviewed as below, CBC reassuring with no leukocytosis or anemia, CMP with no actionable abnormalities, lactate normal. Dimer positive; CTA ordered. CT for PE independently reviewed, no large saddle embolus on my view, agree with radiology read below. On reassessment HR improved to low 90's. Able to take PO fluids. Advised symptomatic treatment at home. Discharged home; discharge instructions and return precautions were reviewed with patient who verbalized understanding. All questions were answered and she is in full agreement with the plan. Imaging Data Radiologic Study: Imaging: X-Ray Radiologist's impression: IMPRESSION: No acute findings. Radiologic Study #2: Imaging: CT Scan Radiologist's impression: IMPRESSION: 1. No evidence of pulmonary embolism. 2. Mild central peribronchial thickening could be seen in association with reactive airways disease versus an acute bronchitis versus mild interstitial edema but nonspecific. Correlate clinically. Lab Data Lab results reviewed: Yes I reviewed the patient's lab results. Labs: Laboratory Tests Range/Units 09/28/23 09/28/23 19:26 20:11 WBC (4.4-10.8) 10^3/uL 9.66 RBC (3.93-5.22) 10^6/uL 5.18 Hgb (11.2-15.7) g/dL 15.6 Hct (36.0-46.0) % 47.7 H MCV (80-95) fL 92 MCH (27.0-33.0) pg 30.1 MCHC (32.0-36.0) % 32.7 RDW (11.7-14.6) % 13.3 Plt Count (130-400) 10^3/uL 347 MPV (8.0-11.0) fL 9.5 Immature Gran % 0.5 Neutrophils % 53.5 Lymphocytes % 31.2 Monocytes % 10.1 Eosinophils % 4.1 Basophils % 0.6 Nucleated RBC % (0.0-0.3) % 0.0 Absolute Neutrophils (1.2-6.7) 10^3/uL 5.16 Absolute Lymphocytes (1.2-3.4) 10^3/uL 3.01 Absolute Monocytes (0.1-0.8) 10^3/uL 0.98 H Absolute Eosinophils (0.0-0.7) 10^3/uL 0.40 Absolute Basophils (0.0-0.2) 10^3/uL 0.06 D-Dimer (<500) ng/mlFEU 543 H VBG Lactate (0.6-1.4) mmol/L 1.0 Sodium (136-145) mmol/L 141 Potassium (3.5-5.1) mmol/L 3.9 Chloride (98-107) mmol/L 104 Carbon Dioxide (21.0-32.0) mmol/L 26.9 Anion Gap (3-11) mmol/L 10.1 BUN (7-18) mg/dL 8 Creatinine (0.55-1.02) mg/dL 1.0 Est GFR (CKD-EPI 2020) (mL/min/1.73m2) 68.21 Glucose (74-106) mg/dL 110 H Calcium (8.5-10.1) mg/dL 8.9 Total Bilirubin (0.2-1.0) mg/dL 0.2 AST (15-37) U/L 21 ALT (14-59) U/L 40 Alkaline Phosphatase (46-116) U/L 88 Total Protein (6.4-8.2) g/dL 8.2 Albumin (3.4-5.0) g/dL 3.6 COVID-19 Source Nasopharynx SARS-CoV-2 (PCR) (Negative) Negative Influenza Type A (PCR) (Negative) Negative Influenza Type B (PCR) (Negative) Negative RSV (PCR) (Negative) Negative Quality:SDOH Health Related Social Needs: No Data to Display PFSH All Active Problems (Updated 09/28/23 @ 21:50 by Елена Bone MD) Acute sore throat (Acute) Viral upper respiratory infection (Acute) Screening for colon cancer (Acute) No-show for appointment (Acute) Contusion of right elbow (Acute) Biceps tendinitis of right upper extremity (Acute) Right rotator cuff tendonitis (Acute) Surgical History Cholecystectomy Social History Smoking/Tobacco Use Status: Current every day Tobacco Type: cigarettes Smoking risk assessment performed?: Yes Alcohol Intake: never Drug use: Never Substance use type: does not use Current gender identity: female Do you feel safe at home: Yes Do you feel safe in your relationship?: Yes
[2023-09-28 20:49] LABS: D-Dimer 543 ng/mlFEU (<500)
--- NOTE | 2023-09-28 21:00 | DI.CT_ITS ---
Exam(s) CT CHEST PE CTA EXAM: CT CHEST PE CTA CLINICAL HISTORY: tachycardia, short of breath, + dimer. TECHNIQUE: Imaging Protocol: CT angiography of the chest was performed using pulmonary embolus pablito col. Multi planar reconstructions were performed. CONTRAST MATERIAL: Intravenous: Omnipaque 350 Contrast volume: 100 cc COMPARISON: CR,XR XR CHEST 2V PA LATERAL from 09/28/2023 FINDINGS: CHEST: PULMONARY ARTERIES: There are no intraluminal filling defects to suggest acute pulmonary emboli. LUNGS: There are no infiltrates nor evidence of pulmonary infarction.. There are no pleural effusions . No ominous pulmonary nodules. MEDIASTINUM: There are moderately enlarged lymph nodes in both hilar regions. There is no adenopathy in the anterior mediastinal fat. No paratracheal adenopathy. Single slightly prominent lymph node evident in the subcarinal region. No axillary adenopathy. CARDIAC: Heart size is upper normal. There is no pericardial effusion.Caliber of the thoracic aorta is within normal limits. No evidence of dissection. There is no significant shift of the interventri cular septum. PARTIALLY VISUALIZED UPPERMOST ABDOMEN: Previous cholecystectomy. No significant findings in the rig ht adrenal gland. Small hypodense nodule in the left adrenal gland measuring 9 by 8 mm probably inci dental adenoma. There is a cyst in the superior pole of the left kidney measuring 5.5 x 4.5 cm. The re also appears to be another cyst below this level which may be parapelvic but difficult to assess a s only the upper 3rd of the kidney is included in the field of view of this chest study. OSSEOUS: No significant osseous lesions.No fractures.. IMPRESSION: 1. No evidence of acute pulmonary emboli. No evidence of pulmonary infarction.No pleural effusions. No infiltrates. 2. There are mildly enlarged lymph nodes in both hilar regions. No obvious mediastinal adenopathy. 3. Incidental abdominal findings as above. RADIATION DOSE DELIVERED: Total DLP DATA REPOSITORY: All CT scans at this facility are submitted to the National Radiology Data Registry (NRDR) Dose Index Registry (DIR) with the [employer] ([employer]). RADIATION OPTIMIZATION: All CT scans at this facility use at least one of these dose optimization te chniques: automated exposure control; mA and/or kV adjustment per patient size (includes targeted exa ms where dose is matched to clinical indication); or iterative reconstruction.
--- NOTE | 2023-09-28 21:15 | DI.VRAD_ITS ---
PROCEDURE INFORMATION: Exam: XR Chest Exam date and time: 09/28/2023 8:45 PM Age: 53 years old Clinical indication: Cough and shortness of breath TECHNIQUE: Imaging protocol: Radiologic exam of the chest. Views: 2 views. COMPARISON: CR XR SHOULDER RT COMPLETE 2+V 10/30/2021 8:28 AM FINDINGS: Lungs: Lungs are adequately inflated and symmetric. No focal consolidation or evidence of pulmonary edema. Pleural spaces: No pleural effusion. No pneumothorax. Heart/Mediastinum: Cardiomediastinal contours within normal limits. Bones/joints: No acute osseous finding. IMPRESSION: No acute findings. Dictated and Authenticated by: Ishan Horton MD. Ordering:ALONSO Christiansen MD
[2023-09-28] MEDS: Normal Saline Flush 10 ML SYR IVP (21:20)
[2023-09-28] MEDS: Omnipaque 350 MG/ML 100 ML BTL IJ (21:21)
[2023-09-28] MEDS: Normal Saline - Diluent 50 ML VIAL IJ (21:26)
--- NOTE | 2023-09-28 21:44 | DI.VRAD_ITS ---
PROCEDURE INFORMATION: Exam: CTA Chest With Contrast Exam date and time: 09/28/2023 9:23 PM Age: 53 years old Clinical indication: Other: Tachycardia, short of breath, + dimer TECHNIQUE: Imaging protocol: Computed tomographic angiography of the chest with contrast. Exam focused on the arteries. 3D rendering (Not supervised by radiologist): MIP and/or 3D reconstructed images were created by the technologist. Contrast material: OMNIPAQUE 350; Contrast volume: 100 ml; Contrast route: INTRAVENOUS (IV); COMPARISON: CR XR CHEST 2V PA LATERAL 09/28/2023 8:45 PM FINDINGS: Pulmonary arteries: Pulmonary arterial opacification is adequate. No hypoattenuating pulmonary artery filling defect. Aorta: No thoracic aortic aneurysm or obvious evidence of dissection. Left vertebral artery originates from aortic arch, normal variant. Thyroid: No mass. Lungs: No pulmonary consolidation. There is mild left basilar atelectasis and/or scarring. No mass. There is mild central peribronchial thickening. Pleural spaces: No pneumothorax. No pleural effusion. Heart: Heart is not enlarged. No pericardial effusion. Lymph nodes: Few prominent but non pathologically enlarged bilateral hilar lymph nodes are possibly reactive but nonspecific, for example 0.8 cm short axis right lymph node (series 4, image 30). No enlarged mediastinal lymph nodes. Gallbladder and bile ducts: Gallbladder is surgically absent. Kidneys and ureters: Simple appearing cyst in the superior left kidney. Bones/joints: Unremarkable. No acute fracture. Soft tissues: No focal abnormality. IMPRESSION: 1. No evidence of pulmonary embolism. 2. Mild central peribronchial thickening could be seen in association with reactive airways disease versus an acute bronchitis versus mild interstitial edema but nonspecific. Correlate clinically. Dictated and Authenticated by: Ishan Horton MD. Ordering:ALONSO Christiansen MD
[2023-09-28] MEDS: Ketorolac 15 MG/ML VIAL IVP (21:59)
== END 2023-09-28 22:01 | disposition home or self-care (01) ==
LOC: ER 22:06
PROVIDERS: Emergency Provider Student in an Organized Health Care Education/Training Program
DX: J06.9 Acute upper respiratory infection, unspecified (principal); B97.89 Other viral agents as the cause of diseases classified elsewhere; J02.9 Acute pharyngitis, unspecified; F17.210 Nicotine dependence, cigarettes, uncomplicated; Z11.52 Encounter for screening for COVID-19; Z90.49 Acquired absence of other specified parts of digestive tract
CPT/HCPCS: 36415; 71275; 80053; 87637; 96360; 99285; 71046; 83605; 85025; 85379; 99284; J1885; J3490; J8540

== ENCOUNTER 2024-10-25 18:11 | Emergency (ER) | payer SELFPAY ==
[2024-10-25] VITALS (18 sets, daily range): BP systolic 115–142; BP diastolic 60–112; PULSE 93–129; RESP 10–22; TEMP 37.2; O2SAT 95–99
--- NOTE | 2024-10-25 18:00 | RT.EKG_ITS ---
APPROVED REPORT Exam: Resting ECG Reason for Exam: Chest Pain Patient Location: E HR:122 bpm ECG Measurements Heart Rate 122 AXIS IN 145 P 60 QRSd 97 QRS 48 QT 328 T 42 QTc 468 Conclusion Sinus tachycardia 122 normal axis no stemi
[2024-10-25 19:07] LABS: Abs Immature Grans 0.04 10^3/uL (0.0-0.06); Absolute Basophil Count 0.05 10^3/uL (0.0-0.2); Absolute Lymphocyte Count 3.36 10^3/uL (1.2-3.4); Absolute Monocyte Count 1.12 10^3/uL (0.1-0.8); Basophils % 0.4 %; Eosinophils % 0.3 %; HCT 46.5 % (36.0-46.0); HGB 15.3 g/dL (11.2-15.7); Immature Grans % 0.3 %; Lymphocytes % 29.1 %; MCHC 32.9 % (32.0-36.0); MCV 91 fL (80-95); MPV 9.6 fL (8.0-11.0); Monocytes % 9.7 %; Neutrophils % 60.2 %; Platelet Count 338 10^3/uL (130-400); RDW 13.2 % (11.7-14.6); RDW-SD 44.7 fL; WBC 11.55 10^3/uL (4.4-10.8)
[2024-10-25 19:08] LABS: Absolute Eosinophil Count 0.03 10^3/uL (0.0-0.7); Absolute Neutrophil Count 6.95 10^3/uL (1.2-6.7)
[2024-10-25] MEDS: Aspirin 325 MG TAB PO (19:08)
--- NOTE | 2024-10-25 19:15 | DI.RAD_ITS ---
Exam(s) XR CHEST 2V PA LATERAL EXAM: XR CHEST 2V PA LATERAL CLINICAL HISTORY: chest pain TECHNIQUE: 2D digital imaging was performed. Two views. COMPARISON: No exams were available for comparison FINDINGS: HEART: Normal size. Aorta: Not dilated. PULMONARY VASCULATURE: Normal. MEDIASTINUM: Unremarkable. LUNGS: Clear. PLEURAL SPACE: No pleural effusion or pneumothorax. BONE:Unremarkable for age. SOFT TISSUES: Unremarkable. IMPRESSION: No acute abnormality. DATA REPOSITORY: RADIATION DOSE DELIVERED:
[2024-10-25 19:35] LABS: D-Dimer 423 ng/mlFEU (<500)
[2024-10-25 19:40] LABS: ALT 37 U/L (14-59); AST 18 U/L (15-37); Albumin 3.8 g/dL (3.4-5.0); Alkaline Phosphatase 86 U/L (46-116); Anion Gap 8.8 mmol/L (3-11); BUN 7 mg/dL (7-18); Bilirubin, Total 0.4 mg/dL (0.2-1.0); CO2 27.2 mmol/L (21.0-32.0); Calcium 9.3 mg/dL (8.5-10.1); Chloride 102 mmol/L (98-107); Estimated GFR 67.78 (mL/min/1.73m2); Glucose 113 mg/dL (74-106); Potassium 3.8 mmol/L (3.5-5.1); Sodium 138 mmol/L (136-145); TSH 1.59 uIU/mL (0.36-3.74); Total Protein 8.1 g/dL (6.4-8.2); Troponin I 4 ng/L (<or=51)
[2024-10-25 20:07] LABS: *AMPHETAMINES SCREEN URINE Negative (Negative); *BARBITURATES SCREEN URINE Negative (Negative); *BENZODIAZEPINES SCREEN URINE Negative (Negative); Cannabinoids THC Negative (Negative); Cocaine Screen,Urine Negative (Negative); METHADONE URINE SCREEN Negative (Negative); OPIATES URINE SCREEN Negative (Negative)
[2024-10-25 20:11] LABS: Tricyclic Antidepressants Negative (Negative)
[2024-10-25 20:16] LABS: Troponin I < 4 ng/L (<or=51)
[2024-10-25] MEDS: predniSONE 20 MG TAB 60 MG PO (20:35)
[2024-10-25] MEDS: Doxycycline Hyclate 100 MG CAP PO (20:35)
--- NOTE | 2024-10-25 20:35 | ED.GENADUL_ITS ---
Discharge Plan Disposition Patient Disposition: Home Condition: Stable Discharge Details Clinical Impression: Post-viral cough syndrome, Pneumonia Primary Care Provider: Unknown,Unknown ED Provider: Lydia Valenzuela Home Meds and New Rx's Prescriptions: New promethazine 6.25 mg/5 mL syrup 12.5 mg PO Q6H PRN (Reason: cough) Qty: 120 0RF prednisone 20 mg tablet 40 mg PO DAILY 4 Days Qty: 8 0RF benzonatate 100 mg capsule 100 mg PO TID PRN (Reason: cough) Qty: 30 0RF doxycycline hyclate 100 mg capsule 100 mg PO BID 5 Days Qty: 10 0RF No Action methocarbamol 750 mg tablet 750 mg PO QID Qty: 20 0RF albuterol sulfate 90 mcg/actuation HFA aerosol inhaler 2 puff inhalation Q6H PRN (Reason: shortness of breath or wheezing) Qty: 8.5 0RF Patient Comments: pt is out and needs a refill Rx Instructions: 2 puffs every 4-6 hours as needed for cough, wheeze, or shortness of breath prednisone 20 mg tablet 40 mg PO DAILY Qty: 10 0RF Rx Instructions: take in the morning with food. take 2 pills daily x 5 days Discharge Instructions Instructions: Atypical Pneumonia (Mycoplasma and Viral) (DC) Additional Instructions: you likely have a postviral pneumonia and will treat with antibiotics. First dose given in the emergency department, the remainder of the antibiotics have been sent to the pharmacy. Will also treat with steroids. You have been given an albuterol Hailer to use. Your blood work regarding your heart was unremarkable. I will also prescribe some cough medication please take medications as prescribed, follow-up with your PCP return to the emergency department feel like her symptoms or not improving. HPI General Date/Time Provider Initiated Documentation: 10/25/24 18:14 . Limitations to Documentation: no limitations . Information obtained by: patient . HPI Narrative: 54-year-old female with past medical history of tobacco abuse, presents for evaluation of cough and chest pain. She reports that about a week ago she had a viral URI illness. She tested negative on a home test for COVID at that time, but otherwise did not seek medical care. She states that her symptoms resolved and she had been feeling well until last night when she started feeling chest pressure. She states that she felt like her cats were sitting on her chest. She reports that this symptom has been constant throughout the day. She has not had much relief. She is now having some cough. She has not had any fever. Related Data Home Medications ?Medication ?Instructions ?Recorded ?Confirmed prednisone 20 mg tablet 40 mg (2 x 20 mg) PO DAILY #10 tabs 01/03/24 01/05/24 albuterol sulfate 90 mcg/actuation 2 puff inhalation Q6H PRN 01/05/24 01/05/24 aerosol inhaler shortness of breath or wheezing #8.5 grams methocarbamol 750 mg tablet 750 mg PO QID #20 tabs 01/05/24 01/05/24 benzonatate 100 mg capsule 100 mg PO TID PRN cough #30 caps 10/25/24 doxycycline hyclate 100 mg capsule 100 mg PO BID 5 days #10 caps 10/25/24 prednisone 20 mg tablet 40 mg (2 x 20 mg) PO DAILY 4 days 10/25/24 #8 tabs promethazine 6.25 mg/5 mL oral 12.5 mg (10 mL) PO Q6H PRN cough 10/25/24 syrup #120 mL Previous Rx's ?Medication ?Instructions ?Recorded prednisone 20 mg tablet 40 mg (2 x 20 mg) PO DAILY #10 tabs 01/03/24 albuterol sulfate 90 mcg/actuation 2 puff inhalation Q6H PRN 01/05/24 aerosol inhaler shortness of breath or wheezing #8.5 grams methocarbamol 750 mg tablet 750 mg PO QID #20 tabs 01/05/24 benzonatate 100 mg capsule 100 mg PO TID PRN cough #30 caps 10/25/24 doxycycline hyclate 100 mg capsule 100 mg PO BID 5 days #10 caps 10/25/24 prednisone 20 mg tablet 40 mg (2 x 20 mg) PO DAILY 4 days 10/25/24 #8 tabs promethazine 6.25 mg/5 mL oral 12.5 mg (10 mL) PO Q6H PRN cough 10/25/24 syrup #120 mL Allergies Allergy/AdvReac Type Severity Reaction Status Date / Time No Known Allergies Allergy Unverified 01/05/24 14:41 General Stated Complaint: Chest Pain SHARON: 3 Exam Narrative Exam Narrative: Review of Systems: All systems reviewed & are unremarkable except as noted in HPI and below Well-developed, no acute distress NCAT mild tachycardia no murmur Chest wall nontender to palpation unlabored respiratory effort, no hypoxia, diminished in the left lower base Nondistended abdomen Extremities w/o edema Course Vital Signs Vital signs: Vital Signs Temperature 37.2 C 10/25/24 18:15 Pulse 129 H 10/25/24 18:15 Respiratory Rate 20 10/25/24 18:15 Blood Pressure 137/82 10/25/24 18:15 Pulse Oximetry 97 10/25/24 18:15 Temperature 37.2 C 10/25/24 18:15 Pulse 102 H 10/25/24 19:02 Respiratory Rate 16 10/25/24 19:37 Respiratory Effort Normal, Non-Labored 10/25/24 19:37 Respiratory Depth Normal 10/25/24 19:37 Respiratory Pattern Normal 10/25/24 19:37 Blood Pressure 142/71 H 10/25/24 19:02 Blood Pressure Mean 95 10/25/24 19:02 Blood Pressure Position Sitting 10/25/24 18:15 Pulse Oximetry 97 10/25/24 18:15 Oxygen Delivery Method Room Air 10/25/24 18:15 Oxygen Flow Rate 0 10/25/24 18:15 Lab/Test Results Lab/Test Results: Laboratory Tests Range/Units 10/25/24 10/25/24 10/25/24 18:58 19:32 19:36 WBC (4.4-10.8) 10^3/uL 11.55 H RBC (3.93-5.22) 10^6/uL 5.10 Hgb (11.2-15.7) g/dL 15.3 Hct (36.0-46.0) % 46.5 H MCV (80-95) fL 91 MCH (27.0-33.0) pg 30.0 MCHC (32.0-36.0) % 32.9 RDW (11.7-14.6) % 13.2 Plt Count (130-400) 10^3/uL 338 MPV (8.0-11.0) fL 9.6 Immature Gran % % 0.3 Neutrophils % % 60.2 Lymphocytes % % 29.1 Monocytes % % 9.7 Eosinophils % % 0.3 Basophils % % 0.4 Nucleated RBC % (0.0-0.3) % 0.0 Absolute Neutrophils (1.2-6.7) 10^3/uL 6.95 H Absolute Lymphocytes (1.2-3.4) 10^3/uL 3.36 Absolute Monocytes (0.1-0.8) 10^3/uL 1.12 H Absolute Eosinophils (0.0-0.7) 10^3/uL 0.03 Absolute Basophils (0.0-0.2) 10^3/uL 0.05 D-Dimer (<500) ng/mlFEU 423 Sodium (136-145) mmol/L 138 Potassium (3.5-5.1) mmol/L 3.8 Chloride (98-107) mmol/L 102 Carbon Dioxide (21.0-32.0) mmol/L 27.2 Anion Gap (3-11) mmol/L 8.8 BUN (7-18) mg/dL 7 Creatinine (0.55-1.02) mg/dL 1.0 Est GFR (CKD-EPI 2020) (mL/min/1.73m2) 67.78 Glucose (74-106) mg/dL 113 H Calcium (8.5-10.1) mg/dL 9.3 Total Bilirubin (0.2-1.0) mg/dL 0.4 AST (15-37) U/L 18 ALT (14-59) U/L 37 Alkaline Phosphatase (46-116) U/L 86 Troponin I (<or=51) ng/L 4 < 4 Total Protein (6.4-8.2) g/dL 8.1 Albumin (3.4-5.0) g/dL 3.8 TSH (0.36-3.74) uIU/mL 1.59 Urine Opiates Screen (Negative) Negative Urine Methadone Screen (Negative) Negative Ur Barbiturates Screen (Negative) Negative Ur Tricyclics Screen (Negative) Negative Ur Amphetamines Screen (Negative) Negative U Benzodiazepines Scrn (Negative) Negative Urine Cocaine Screen (Negative) Negative Ur THC Screen (Negative) Negative Range/Units 10/25/24 21:30 WBC (4.4-10.8) 10^3/uL RBC (3.93-5.22) 10^6/uL Hgb (11.2-15.7) g/dL Hct (36.0-46.0) % MCV (80-95) fL MCH (27.0-33.0) pg MCHC (32.0-36.0) % RDW (11.7-14.6) % Plt Count (130-400) 10^3/uL MPV (8.0-11.0) fL Immature Gran % % Neutrophils % % Lymphocytes % % Monocytes % % Eosinophils % % Basophils % % Nucleated RBC % (0.0-0.3) % Absolute Neutrophils (1.2-6.7) 10^3/uL Absolute Lymphocytes (1.2-3.4) 10^3/uL Absolute Monocytes (0.1-0.8) 10^3/uL Absolute Eosinophils (0.0-0.7) 10^3/uL Absolute Basophils (0.0-0.2) 10^3/uL D-Dimer (<500) ng/mlFEU Sodium (136-145) mmol/L Potassium (3.5-5.1) mmol/L Chloride (98-107) mmol/L Carbon Dioxide (21.0-32.0) mmol/L Anion Gap (3-11) mmol/L BUN (7-18) mg/dL Creatinine (0.55-1.02) mg/dL Est GFR (CKD-EPI 2020) (mL/min/1.73m2) Glucose (74-106) mg/dL Calcium (8.5-10.1) mg/dL Total Bilirubin (0.2-1.0) mg/dL AST (15-37) U/L ALT (14-59) U/L Alkaline Phosphatase (46-116) U/L Troponin I (<or=51) ng/L Cancelled Total Protein (6.4-8.2) g/dL Albumin (3.4-5.0) g/dL TSH (0.36-3.74) uIU/mL Urine Opiates Screen (Negative) Urine Methadone Screen (Negative) Ur Barbiturates Screen (Negative) Ur Tricyclics Screen (Negative) Ur Amphetamines Screen (Negative) U Benzodiazepines Scrn (Negative) Urine Cocaine Screen (Negative) Ur THC Screen (Negative) Medical Decision Making Emergent evaluation of chest pressure and cough. Initial differential includes ACS, pulmonary embolism, pneumonia, bronchospasm. The patient has a smoking history and would likely benefit from steroids and bronchodilator treatment. It is noted that she is tachycardic. Her EKG was obtained and independently interpreted: Sinus tachycardia 122 no STEMI. Unclear what is precipitating the tachycardia. She has low risk factors for DVT. Lab work including a D-dimer was obtained. She has a mild leukocytosis of 11.5. No anemia. There is a slight left shift. Her D-dimer is negative making a pulmonary embolism very unlikely. Her heart rate has improved in the emergency department. Her electrolytes are unremarkable and her troponin is undetectable x 2. Thyroid function is within normal limits and her drug screen is also negative for anything that may precipitate Her tachycardia. Her symptoms have improved and at this time I had a concern for possible consolidation on her chest x-ray in conjunction with her clinical symptoms I will treat with antibiotics. Cough medication was also sent to the emergency department as well as steroids and she was provided with an inhaler and spacer. Home management discussed with the patient. Return precautions advised. Recommend close follow-up with PCP for ongoing management. Quality:SDOH Health Related Social Needs: No Data to Display PFSH All Active Problems (Updated 10/25/24 @ 20:26 by Lydia Valenzuela MD) Pneumonia (Acute) Post-viral cough syndrome (Acute) Thoracic outlet syndrome of left thoracic outlet (Acute) Screening for colon cancer (Acute) No-show for appointment (Acute) Contusion of right elbow (Acute) Biceps tendinitis of right upper extremity (Acute) Right rotator cuff tendonitis (Acute) Surgical History Cholecystectomy Social History Smoking/Tobacco Use Status: Current every day Tobacco Type: cigarettes Smoking risk assessment performed?: Yes Alcohol Intake: never Drug use: Never Substance use type: does not use Current gender identity: female Do you feel safe at home: Yes Do you feel safe in your relationship?: Yes
[2024-10-25] MEDS: Albuterol HFA 8 GM 60 PUFF INH IH (20:36)
--- NOTE | 2024-10-25 21:18 | DI.VRAD_ITS ---
PROCEDURE INFORMATION: Exam: XR Chest Exam date and time: 10/25/2024 8:03 PM Age: 54 years old Clinical indication: Chest pain, recent cold TECHNIQUE: Imaging protocol: Radiologic exam of the chest. Views: 2 views. COMPARISON: CT CHEST PE CTA 09/28/2023 9:23 PM FINDINGS: Lungs: Small calcified granuloma identified in the left lower lobe. Pleural spaces: Unremarkable. No pleural effusion. No pneumothorax. Heart/Mediastinum: Unremarkable. No cardiomegaly. Bones/joints: Unremarkable. IMPRESSION: No acute infiltrates. Dictated and Authenticated by: Natan Mejia MD. Orderin Bianca Fan MD
== END 2024-10-25 23:24 | disposition home or self-care (01) ==
PROVIDERS: Emergency Provider Emergency Medicine
DX: J18.9 Pneumonia, unspecified organism (principal); R05.8 Other specified cough; F17.210 Nicotine dependence, cigarettes, uncomplicated
CPT/HCPCS: 36415; 80053; 80307; 93005; 99285; 71046; 84443; 84484; 85025; 85379; 93010; 99284; J7512